=== PATIENT | female | born 1965 | race Caucasian/White ===

== ENCOUNTER 2023-08-08 09:36 | Emergency (ER) | payer OTHER ==
[~2023-08-08] VITALS: Ht 167.6 cm; Wt 90.7 kg
[2023-08-08 10:21] VITALS: BP 135/56; TEMP 98.2
[2023-08-08] MEDS ORDERED: CYCL5TAB PO (10:48)
[2023-08-08] MEDS ORDERED: CYCLOBENZAPRINE 10 MG TABLET ONE (11:01)
[2023-08-08] MEDS ORDERED: KETOROLAC TROMETHAMINE INJ 30 MG/ML VIAL ONE (11:01)
[2023-08-08] MEDS: KETOROLAC TROMETHAMINE INJ 60 MG/2 ML VIAL IM ONE (11:06)
[2023-08-08] MEDS: CYCLOBENZAPRINE 10 MG TABLET PO ONE (11:07)
[2023-08-08 11:13] VITALS: O2SAT 98
== END 2023-08-08 11:14 | disposition home or self-care (01) ==
LOC: ER 09:40
DX: M54.6 Pain in thoracic spine (principal); E11.9 Type 2 diabetes mellitus without complications
CPT/HCPCS: 99283; 96372; J1885